=== PATIENT | male | born 1960 | race Caucasian/White ===

== ENCOUNTER 2016-12-08 12:07 | Inpatient (IN) | payer OTHER ==
--- NOTE | ~2016-12-08 | PA ---
Unit #: [id number] #: [id number] Patient: ARGENIS LEON [id number] [place] [address] [id number] MR#: [id number] NAME: ARGENIS LEON. ROOM: [facility] Age: 56 Sex: M Admission Date: 12/08/2016 : 1960 Date of Assessment: 12/09/2016 Attending Physician: Argenis Umana M.D. Admitting Physician: Argenis Umana M.D. Primary Care Physician: Primary Care Physician No PSYCHIATRIC ASSESSMENT IDENTIFYING INFORMATION The patient is a 56-year-old, , homeless white male admitted after presenting to this hospital complaining of suicidal ideation, increasing alcohol use and plan to overdose on heroin. INFORMANT(S) Chart. The patient could not be aroused for interview. CHIEF COMPLAINT None given. HISTORY OF PRESENT ILLNESS The patient is a 56-year-old white male last admitted to this facility under the care of Dr. Chapin in June 2016. He has history of alcohol abuse, as well as hepatitis C, diabetes and end-stage liver disease. The patient had reported to [facility] in [place] complaining of positive suicidal ideation yesterday with plan to overdose on heroin. The patient states that he is homeless and "tired of living like this." When the interview was attempted today, the patient cannot be aroused for interview in spite of multiple attempts on the part of this physician to do so. PAST PSYCHIATRIC HISTORY Reviewed, no changes. FAMILY HISTORY/SOCIAL HISTORY Reviewed, no changes. MEDICAL HISTORY The patient suffers from end-stage renal disease, COPD, hypertension, diabetes mellitus and hepatitis C. MEDICATION HISTORY 1. Aldactone 2. Inderal 3. Glucophage 4. Neurontin 5. Vitamin D 6. Claritin 7. Proventil 8. Trazodone ALLERGIES Unit #: [id number] #: [id number] Patient: ARGENIS LEON None MENTAL STATUS EXAM At this time, reveals the patient to be a disheveled white male who is sleeping sounding. Multiple attempts to arouse the patient are unsuccessful. ASSETS To be assessed. LIABILITIES Lack of resources, homelessness, considerable health issues. ADMITTING DIAGNOSES 1. Dysthymic disorder 2. Alcohol use disorder 3. Diabetes mellitus 4. Hypertension 5. Hepatitis C 6. End-stage renal disease 7. End-stage liver disease 8. Chronic obstructive pulmonary disease PSYCHIATRIC PLAN/TREATMENT GOALS The patient remains hospitalized for safety and stabilization. Suicide precautions are in place and a routine detoxification protocol has been ordered. Home medications will be continued. FOLLOW UP Will take place through the auspices of [facility] in the [place], [place] area. ESTIMATED LENGTH OF STAY IN THE HOSPITAL Five days. ASSETS AND LIABILITIES ADMITTING DIAGNOSES PSYCHIATRIC PLAN/TREATMENT GOALS DISCHARGE PLANNING ESTIMATED LENGTH OF STAY Dictated by... Unit #: [id number] #: [id number] Patient: ARGENIS LEON M.D. CB/maty TD: 12/09/2016 13:02 JOB #: [id number] PSYCHIATRIC ASSESSMENT X Argenis Umana MD X PSYCHIATRIC ASSESSMENT
--- NOTE | ~2016-12-08 | PN ---
Unit #: [id number] #: [id number] Patient: ASAD LEON [id number] [facility] [address] [place] [address] [id number] MR#: [id number] NAME: ASAD LEON ROOM: [facility] Age: 56 Sex: M Admission Date: 12/08/2016 : 1960 Attending Physician: Asda Umana M.D. Admitting Physician: Asad Umana M.D. Primary Care Physician: Primary Care Physician Mirna STEVENS PROGRESS NOTES DATE 12/10/2016 DISCUSSION The patient is abed today continuing to complain of dysphoric mood and symptoms of significant withdrawal. We continue current treatment and I have encouraged the patient to increase his participate within the therapeutic milieu. Dictated by... Asad Umana M.D. CB/gracie TD: 12/11/2016 01:10 JOB #: [id number] RODNEY MEDINA NOTES X Asad Umana MD X PROGRESS NOTE
--- NOTE | ~2016-12-08 | HP ---
Unit #: [id number] #: [id number] Patient: ASAD LEON [id number] [place] [address] [id number] MR#: [id number] NAME: ASAD LEON. ROOM: [facility] Age: 56 Sex: M Admission Date: 12/08/2016 : 1960 Attending Physician: Asad Umana M.D. Admitting Physician: Asad Umana M.D. Primary Care Physician: Primary Care Physician No HISTORY AND PHYSICAL HISTORY OF PRESENT ILLNESS Asad is a 56-year-old male admitted on 12/08/[address] [place] [address] for detox from alcohol. PAST MEDICAL HISTORY 1. Hepatitis C 2. Asthma 3. Type II diabetes 4. Hypertension 5. Cirrhosis of the liver PAST SURGICAL HISTORY None. SOCIAL HISTORY Smokes one pack of cigarettes daily. Drinks a fifth of alcohol daily. No illegal drug use. He is currently and homeless. FAMILY HISTORY Noncontributory. REVIEW OF SYSTEMS CONSTITUTIONAL: No fever or chills. HEENT: Denies any sore throat, ear pain or runny nose. CARDIOVASCULAR: Denies chest pain, irregular heart rhythm or palpitations. CHEST: Denies shortness of breath or cough. No hemoptysis. GASTROINTESTINAL: Denies nausea, vomiting, diarrhea or chronic constipation. ENDOCRINE: Denies history of increased thirst or urination. No recent significant weight loss or gain. GENITOURINARY: Denies dysuria, frequency, or hematuria. SKIN: Denies any rashes. HEMATOLOGIC: Denies history of increased bleeding or bruising. MUSCULOSKELETAL: Denies any hot, swollen joints. No generalized muscle pain. NEUROLOGIC: Denies problems with vision or speech. No frequent, severe headaches. No numbness, tingling or weakness in any extremities. Denies loss of bladder or bowel control. CURRENT MEDICATIONS 1. Aldactone Unit #: [id number] #: [id number] Patient: ASAD LEON 2. Inderal 3. Glucophage 4. Neurontin 5. Vitamin D 6. Claritin 7. Proventil inhaler 8. Trazodone ALLERGIES No known drug allergies. PHYSICAL EXAMINATION GENERAL: Alert, oriented, in no acute distress. VITAL SIGNS: Blood pressure 132/87, heart rate 84, respirations 18, temperature 98.4. HEIGHT: 5 foot 10 inches. WEIGHT: 200 pounds. SKIN: Warm and dry without rash or lesion. HEENT: Normocephalic. TMs not viewed. Oral and nasal passages clear. Conjunctivae clear. PERRLA. EOMs intact. NECK: Supple without lymphadenopathy or thyromegaly. HEART: Regular rate and rhythm without murmur. LUNGS: Clear. ABDOMEN: Soft, nontender, without masses or hepatosplenomegaly. : Not done. EXTREMITIES: No evidence of cyanosis, clubbing or edema. Moves all without focal deficit. NEUROLOGICAL: Grossly within normal limits. Cranial Nerves: II: Visual cardozo are intact. III, IV AND : Extraocular movements are intact. Pupils are equal, round and reactive to light. V: Facial sensation is grossly normal. VII: Facial movements and expression are normal. VIII: Auditory acuity grossly intact. IX, X: Uvula is midline. Phonation is normal. XI: Patient shrugs shoulders and turns head normally. XII: Tongue protrudes in the midline. Sensory and Motor Function: Sensory and motor sensation is grossly normal. Motor: moves all extremities well. Coordination: Gait is normal. Deep Tendon Reflexes: Intact. IMPRESSION 1. Psychiatric admission 2. Hepatitis C 3. Asthma 4. Type II diabetes 5. Hypertension 6. Cirrhosis of the liver RECOMMENDATIONS Psychiatric, per psychiatrist. MEDICAL: I see no contraindications to participating in facility's activities. MEDICAL PROGNOSIS Good. MEDICAL CONDITION Stable. Unit #: [id number] #: [id number] Patient: ASAD LEON Dictated by... Brendan Redman/gracie TD: 12/10/2016 00:00 JOB #: [id number] HISTORY AND PHYSICAL X BIANCA HAYWOOD APRN X HISTORY AND PHYSICAL
--- NOTE | ~2016-12-08 | DS ---
Unit #: [id number] #: [id number] Patient: ARGENIS LEON [id number] [facility] [address] [place] [address] [id number] MR#: [id number] NAME: ARGENIS LEON. ROOM: [facility] Age: 56 Sex: M Admission Date: 12/08/2016 : 1960 Discharge Date: 12/12/2016 Attending Physician: Argenis Umana M.D. Primary Care Physician: Primary Care Physician No DISCHARGE SUMMARY REASON FOR ADMISSION The patient is a 56-year-old white male admitted with recurrent abuse of alcohol and depressed mood. HOSPITAL COURSE The patient was admitted to the [address] [place] [address] Unit and placed on routine detoxification protocol for alcohol. His stay in the hospital was a brief and uneventful one. His detox went smoothly, and by 12/12/2016 the patient was requesting discharge to take place the following day with plans to follow up through the auspices of [facility] in the [facility]. Discharge was ordered. FINAL DIAGNOSES 1. Alcohol use disorder. 2. Alcoholic liver disease. 3. Diabetes mellitus. 4. Chronic obstructive pulmonary disease. DISPOSITION ON DISCHARGE The patient was discharged on the following medications: 1. Aldactone 15 mg once daily for liver disease. 2. Inderal 10 mg 3 times daily for anxiety. 3. Glucophage 500 mg twice daily before meals for diabetic management. 4. Neurontin 300 mg 3 times daily for chronic pain. 5. Vitamin D 50,000 units weekly for vitamin D supplementation. 6. Claritin 10 mg once daily for environmental allergies. 7. Proventil HFA 2 puffs. q. 4 hours p.r.n. shortness of air. 8. Desyrel 75 mg at h.s. p.r.n. insomnia. 9. Vistaril 25 mg q. 6 hours p.r.n. anxiety. 10. Motrin 400 mg q. 6 hours p.r.n. pain. DIET AND ACTIVITY No dietary or physical restrictions were placed on the patient at the time of discharge. FOLLOWUP Followup will take place through the auspices of [facility] in the [facility]. PROGNOSIS The patient's prognosis is considered fair. Unit #: [id number] #: [id number] Patient: ARGENIS LEON Dictated by... Argenis Umana M.D. CB/fran TD: 12/12/2016 13:50 JOB #: [id number] DISCHARGE SUMMARY X Argenis Umana MD X DISCHARGE SUMMARY
[~2016-12-08 12:07] MED LIST: DESYREL100 MG PO; INVEGA6 MG PO; LISINOPRIL10 MG PO; METOPROLOL TAR25 MG PO
[2016-12-09 11:37] LABS: URINE APPEARANCE TURBID; URINE BILIRUBIN NEG (NEG); URINE BLOOD NEG (NEG); URINE COLOR YELLOW; URINE GLUCOSE >1000 MG/DL (NEG); URINE KETONE NEG (NEG); URINE LEUKOCYTE ESTERASE NEG (NEG); URINE NITRATE NEG (NEG); URINE PROTEIN NEG (NEG); URINE SPECIFIC GRAVITY 1.022 (1.003-1.035); URINE UROBILINOGEN 0.2 MG/DL (NEG)
[2016-12-09 11:59] LABS: THYROID STIMULATING HORMONE 0.95 uIU/ml (0.34-5.60)
[2016-12-09 12:06] LABS: FREE THYROXIN (T4) 0.9 ng/dL (0.58-1.64)
== END 2016-12-13 10:06 | DRG 896 ==
LOC: P2S 12:07 → POF 12-10 14:05 → P2S 12-10 14:09
PROVIDERS: Specialist
PROC: HZ2ZZZZ Detoxification Services for Substance Abuse Treatment (ICD-10-PCS; principal; 2016-12-08)
DX: F10.239 Alcohol dependence with withdrawal, unspecified (principal); N18.6 End stage renal disease; I12.0 Hypertensive chronic kidney disease with stage 5 chronic kidney disease or end stage renal disease; R45.851 Suicidal ideations; K72.90 Hepatic failure, unspecified without coma; K70.30 Alcoholic cirrhosis of liver without ascites; F34.1 Dysthymic disorder; E11.22 Type 2 diabetes mellitus with diabetic chronic kidney disease; B19.20 Unspecified viral hepatitis C without hepatic coma; J44.9 Chronic obstructive pulmonary disease, unspecified; Z59.0 Homelessness
CPT/HCPCS: 81003; 84439; 84443; 86592